=== PATIENT | male | born 1965 | race American Indian/Alaskan Native ===

== ENCOUNTER 2021-05-16 19:14 | Emergency (ER) | payer SELFPAY ==
--- NOTE | 2021-05-16 19:36 | Event Note ---
ED Screening Note ED Screening Note: Patient is a 56-year-old male who presents emergency room with complaints of a possible foreign body in the throat He states he has discomfort in his throat and feels like something is in his throat He states that this occurred after eating Father's Day dinner He states he is not sure if it is a sausage casing He denies any eating anything with bones in it He states he has been spitting out his secretions due to discomfort He denies any vomiting or regurgitation of food he denies any Hemoptysis or hematemesis This initial assessment/diagnostic orders/clinical plan/treatment(s) is/are subject to change based on patients health status, clinical progression and re- assessment by fellow clinical providers in the ED. Further treatment and workup at subsequent clinical providers discretion. Patient/guardian urged not to elope from the ED as their condition may be serious if not clinically assessed and managed. Initial orders include: ct neck without contrast
--- NOTE | 2021-05-16 20:47 | Cat Scan Report ---
CT NECK WITHOUT CONTRAST HISTORY: Possible foreign body in the throat COMPARISON: None. TECHNIQUE: Routine CT of the neck is performed following intravenous contrast. All CT scans at [facility] are performed using CT dose reduction for ALARA by means of automated exposure control CONTRAST: None FINDINGS: Oral cavity, oropharynx, hypopharynx, cervical esophagus and upper thoracic esophagus: No radiopaque foreign body Skull Base: No significant abnormality. Parotid, Carotid, Retropharyngeal, Prevertebral, Pharyngeal Mucosal, and Human Services Case Manager Spaces: No abnorm al mass, enhancing lesion or other significant abnormality. Airway: Patent and without significant abnormality. Lymphatics: No lymphadenopathy. Vasculature: Difficulty evaluate without intravenous contrast Osseous Structures: Spondylotic changes at multiple levels resulting in foraminal stenoses Additional findings: None. IMPRESSION: No radiopaque foreign body in the pharynx Signer Name: Caleb Cervantes MD Signed: 05/16/2021 8:42 PM Workstation Name: [id number]
[2021-05-17] MEDS ORDERED: GLUCAGON (HUMAN RECOMBINANT) 1 MG/ML INJ IV ONE ×2 (00:58→03:00)
--- NOTE | 2021-05-17 01:09 | Emergency Department Report ---
HPI <RAYNE DELONG - Last Filed: 05/17/21 07:24> - HPI HPI: This is a 56-year-old -[place]ish male presents to the emergency department with a complaint of a food bolus impaction that occurred this evening for dinner. The patient thinks that it is a sausage casing. He feels like he was able to vomit or retch up most of the food but thinks that the casing is still stuck in there. He says that whenever he tries to drink any water or any liquids that it does not pass and he vomits it up. He tried drinking some edgard jeffrey. Patient says that he had this issue 1 time in the past, about 6 years ago, and required some type of surgical intervention at that time. <TODD CASTILLO S - Last Filed: 05/19/21 06:06> - General Chief Complaint: Skin/Abscess/Foreign Body Time Seen by Provider: 05/16/21 19:24 ED Past Medical Hx - Past Medical History Previous Medical History?: No - Surgical History Past Surgical History?: No - Social History Smoking Status: Never Smoker Substance Use Type: None <TODD CASTILLO S - Last Filed: 05/19/21 06:06> ED Review of Systems ROS: Stated complaint: FOOD LOGDGE IN THROAT Other details as noted in HPI <SINDIRAYNE - Last Filed: 05/17/21 07:24> ROS: Stated complaint: FOOD LOGDGE IN THROAT Other details as noted in HPI Comment: All other systems reviewed and negative Constitutional: denies: chills, fever Eyes: denies: eye pain, vision change ENT: throat pain. denies: ear pain Respiratory: denies: cough, shortness of breath Cardiovascular: denies: chest pain, palpitations Gastrointestinal: denies: abdominal pain, vomiting Genitourinary: denies: dysuria, discharge Musculoskeletal: denies: back pain, arthralgia Skin: denies: rash, lesions Neurological: denies: headache, weakness <TODD CASTILLO S - Last Filed: 05/19/21 06:06> Physical Exam - Physical Exam Vital Signs: Vital Signs 05/16/21 05/17/21 05/17/21 19:26 01:15 01:31 Temperature 98.2 F 98.5 F Pulse Rate 91 H 77 74 Respiratory 91 H 19 16 Rate Blood Pressure 169/112 181/114 181/114 O2 Sat by Pulse 97 98 98 Oximetry 05/17/21 05/17/21 05/17/21 01:45 02:01 02:15 Temperature Pulse Rate 59 L 57 L 59 L Respiratory 17 16 15 Rate Blood Pressure 155/91 148/91 160/90 O2 Sat by Pulse 97 98 98 Oximetry 05/17/21 05/17/21 05/17/21 02:31 02:37 02:45 Temperature Pulse Rate 70 80 79 Respiratory 17 19 Rate Blood Pressure 182/106 182/106 192/114 O2 Sat by Pulse 97 100 Oximetry 05/17/21 05/17/21 05/17/21 03:01 03:15 03:31 Temperature Pulse Rate 101 H 101 H 79 Respiratory 18 21 17 Rate Blood Pressure 173/102 173/102 171/105 O2 Sat by Pulse 99 98 99 Oximetry 05/17/21 05/17/21 05/17/21 03:45 03:59 04:01 Temperature Pulse Rate 66 93 H Respiratory 16 18 20 Rate Blood Pressure 145/83 139/80 O2 Sat by Pulse 99 99 Oximetry 05/17/21 05/17/21 05/17/21 04:15 04:29 04:31 Temperature Pulse Rate 78 64 Respiratory 16 18 17 Rate Blood Pressure 143/79 128/81 O2 Sat by Pulse 99 98 Oximetry 05/17/21 05/17/21 05/17/21 04:45 05:01 05:15 Temperature Pulse Rate 77 69 82 Respiratory 15 13 13 Rate Blood Pressure 134/73 138/91 132/77 O2 Sat by Pulse 98 99 99 Oximetry 05/17/21 05/17/21 05/17/21 05:31 05:45 06:01 Temperature Pulse Rate 69 72 67 Respiratory 16 13 13 Rate Blood Pressure 155/91 140/92 143/92 O2 Sat by Pulse 99 99 99 Oximetry 05/17/21 05/17/21 05/17/21 06:15 06:45 07:00 Temperature Pulse Rate 87 73 92 H Respiratory 15 13 11 L Rate Blood Pressure 143/95 143/92 148/105 O2 Sat by Pulse 98 98 98 Oximetry 05/17/21 07:15 Temperature Pulse Rate 88 Respiratory 11 L Rate Blood Pressure 156/112 O2 Sat by Pulse 98 Oximetry <RAYNE DELONG - Last Filed: 05/17/21 07:24> - Physical Exam Vital Signs: Vital Signs 05/16/21 19:26 Temperature 98.2 F Pulse Rate 91 H Respiratory 91 H Rate Blood Pressure 169/112 O2 Sat by Pulse 97 Oximetry Physical Exam: GENERAL: The patient is well-developed well-nourished. HENT: Normocephalic. Atraumatic. Patient has moist mucous membranes. EYES: Extraocular motions are intact. NECK: Supple. Trachea is midline. CHEST/LUNGS: Clear to auscultation. There is no respiratory distress noted. HEART/CARDIOVASCULAR: Regular. There is no tachycardia. There is no murmur. ABDOMEN: Abdomen is soft, nontender. Patient has normal bowel sounds. There is no abdominal distention. SKIN: Skin is warm and dry. NEURO: The patient is awake, alert, and oriented. The patient is cooperative. The patient has no focal neurologic deficits. Normal speech. MUSCULOSKELETAL: There is no tenderness or deformity. There is no limitation range of motion. <TODD CASTILLO S - Last Filed: 05/19/21 06:06> ED Course Vital Signs 05/16/21 05/17/21 05/17/21 19:26 01:15 01:31 Temperature 98.2 F 98.5 F Pulse Rate 91 H 77 74 Respiratory 91 H 19 16 Rate Blood Pressure 169/112 181/114 181/114 O2 Sat by Pulse 97 98 98 Oximetry 05/17/21 05/17/21 05/17/21 01:45 02:01 02:15 Temperature Pulse Rate 59 L 57 L 59 L Respiratory 17 16 15 Rate Blood Pressure 155/91 148/91 160/90 O2 Sat by Pulse 97 98 98 Oximetry 05/17/21 05/17/21 05/17/21 02:31 02:37 02:45 Temperature Pulse Rate 70 80 79 Respiratory 17 19 Rate Blood Pressure 182/106 182/106 192/114 O2 Sat by Pulse 97 100 Oximetry 05/17/21 05/17/21 05/17/21 03:01 03:15 03:31 Temperature Pulse Rate 101 H 101 H 79 Respiratory 18 21 17 Rate Blood Pressure 173/102 173/102 171/105 O2 Sat by Pulse 99 98 99 Oximetry 05/17/21 05/17/21 05/17/21 03:45 03:59 04:01 Temperature Pulse Rate 66 93 H Respiratory 16 18 20 Rate Blood Pressure 145/83 139/80 O2 Sat by Pulse 99 99 Oximetry 05/17/21 05/17/21 05/17/21 04:15 04:29 04:31 Temperature Pulse Rate 78 64 Respiratory 16 18 17 Rate Blood Pressure 143/79 128/81 O2 Sat by Pulse 99 98 Oximetry 05/17/21 05/17/21 05/17/21 04:45 05:01 05:15 Temperature Pulse Rate 77 69 82 Respiratory 15 13 13 Rate Blood Pressure 134/73 138/91 132/77 O2 Sat by Pulse 98 99 99 Oximetry 05/17/21 05/17/21 05/17/21 05:31 05:45 06:01 Temperature Pulse Rate 69 72 67 Respiratory 16 13 13 Rate Blood Pressure 155/91 140/92 143/92 O2 Sat by Pulse 99 99 99 Oximetry 05/17/21 05/17/21 05/17/21 06:15 06:45 07:00 Temperature Pulse Rate 87 73 92 H Respiratory 15 13 11 L Rate Blood Pressure 143/95 143/92 148/105 O2 Sat by Pulse 98 98 98 Oximetry 05/17/21 07:15 Temperature Pulse Rate 88 Respiratory 11 L Rate Blood Pressure 156/112 O2 Sat by Pulse 98 Oximetry - Reevaluation(s) Reevaluation #2: 05/17/21 07:24 Patient weighs me into the room. He informed me that he was able to regurgitate the food bolus. He has had endoscopy performed for similar presentation in the past. He informed me that pork sausage was impacted in his esophagus. He was able to swallow 8 ounces of water without difficulty. I have contacted GI specialist Dr. Mnotanez in order to cancel scheduled endoscopy. Patient is discharged home. <RAYNE DELONG - Last Filed: 05/17/21 07:24> Vital Signs 05/16/21 19:26 Temperature 98.2 F Pulse Rate 91 H Respiratory 91 H Rate Blood Pressure 169/112 O2 Sat by Pulse 97 Oximetry - Reevaluation(s) Reevaluation #1: 05/17/21 04:16 When the patient came back to the emergency department for my initial examination, he had already had a CT scan of the neck that did not show any evidence of radiopaque foreign body or radiopaque food bolus. However, I tested the patient with water and 2 different times the water did not appear to pass and immediately came back up and caused him to have vomiting/retching. We then tried using soda and having him hop up and down on his heels, but this did not appear to dislodge the food bolus and once again the soda came back up. The patient was given a dose of glucagon and after 30 to 45 minutes the patient still is unable to pass liquids down the esophagus. GI was contacted and consulted and they will come in in the morning for evaluation and possible endoscopy. - Consultations Consultation #1: 05/17/21 03:00 I spoke to the business english instructor on-call, Dr Montanez, regarding this patient's impacted food bolus. Since it is currently 3 in the morning going into a Monday, we will keep the patient in the emergency department and a GI consult has been placed. GI will see the patient in the emergency department and most likely scope him to look for and remove the impacted food bolus. He will most likely be discharged after the procedure assuming that the endoscopy does not show any significant complications. <TODD CASTILLO - Last Filed: 05/19/21 06:06> ED Medical Decision Making - Radiology Data Radiology results: report reviewed CT NECK WITHOUT CONTRAST HISTORY: Possible foreign body in the throat COMPARISON: None. TECHNIQUE: Routine CT of the neck is performed following intravenous contrast. All CT scans at this location are performed using CT dose reduction for ALARA by means of automated exposure control CONTRAST: None FINDINGS: Oral cavity, oropharynx, hypopharynx, cervical esophagus and upper thoracic esophagus: No radiopaque foreign body Skull Base: No significant abnormality. Parotid, Carotid, Retropharyngeal, Prevertebral, Pharyngeal Muco narda, and Gill Box Fixer Spaces: No abnormal mass, enhancing lesion or other significant abnormality. Airway: Patent and without significant abnormality. Lymphatics: No lymphadenopathy. Vasculature: Difficulty evaluate without intravenous contrast Osseous Structures: Spondylotic changes at multiple levels resulting in foraminal stenoses Additional findings: None. IMPRESSION: No radiopaque foreign body in the pharynx - Medical Decision Making Despite the negative CT scan, the patient appears to have an impacted food bolus. He is unable to pass any liquids down the esophagus and into the stomach. I attempted giving him soda and having him jump up and down on his heels, followed by a failed attempt to improve his condition with glucagon. GI has been contacted and consulted. 05/19/21 6A: In reviewing the rest of this patient's ED course, it appears that the patient had a GI consult that morning, but he had a vomiting episode just prior to the consult in which the impacted food bolus finally came out. Therefore, he did not require endoscopy. He will follow-up outpatient for possible esophageal dilatation. <TODD CASTILLO S - Last Filed: 05/19/21 06:06> Critical care attestation.: If time is entered above; I have spent that time in minutes in the direct care of this critically ill patient, excluding procedure time. <RAYNE DELONG - Last Filed: 05/17/21 07:24> Critical Care Time: No Critical care attestation.: If time is entered above; I have spent that time in minutes in the direct care of this critically ill patient, excluding procedure time. <TODD CASTILLO - Last Filed: 05/19/21 06:06> ED Disposition Is pt being admited?: No Does the pt Need Aspirin: No <RAYNE DELONG - Last Filed: 05/17/21 07:24> Is pt being admited?: No Time of Disposition: 04:20 <TODD CASTILLO S - Last Filed: 05/19/21 06:06> Clinical Impression: Food impaction of esophagus Qualifiers: Encounter type: initial encounter Qualified Code(s): T18.128A - Food in esophagus causing other injury, initial encounter Hypertension Qualifiers: Hypertension type: essential hypertension Qualified Code(s): I10 - Essential (primary) hypertension Disposition: - TO HOME OR SELFCARE Condition: Stable Instructions: Hypertension, Adult, Hypertension (ED) Additional Instructions: Please follow-up with your primary care physician in the next few days. I have given you a referral for Dr. Montanez, one of the business english instructor with [facility], to follow-up regarding your esophageal stenosis and the impacted food bolus. Please try and stay away from foods that are high in salt and caffeinated products. Keep a blood pressure log. Return to the emergency department with any worsening of your symptoms, new or concerning symptoms not addressed during this current emergency department visit, or with any acute distress. Referrals: PRIMARY CARE, [Primary Care Provider] - 3-5 Days NNAMDI MONTANEZ MD [Staff Physician] - 3-5 Days [facility] [Provider Group] - 3-5 Days
[2021-05-17] MEDS ORDERED: hydrALAZINE 20 MG/1 ML INJ IV ONE (02:31)
[2021-05-17] MEDS ORDERED: MORPHINE 4 MG/1 ML INJ IV ONE (03:25)
[2021-05-17 07:44] VITALS: BP 157/110
--- NOTE | 2021-05-17 07:54 | Gastroenterology Consultation ---
History of Present Illness - Reason for Consult Consult date: 05/17/21 Food bolus Requesting physician: TODD CASTILLO - History of Present Illness This is a 56 yo male presented overnight to the ED for food impaction after eating pork sausage yesterday around 5 PM. Since then, he could not swallow anything even water. Denies any abdominal pain. He received IV pain medication. Just prior to GI evaluation, he states he had vomited and the sausage came out. Now he is able to drink water without any vomiting or choking. He had similar episode about 6 years ago and had EGD with food bolus extraction at [place]. He was told to follow up for dilation but never did. He has been having occasional dysphagia to solids since then. medication list reviewed. Past History Past Medical History: hypertension Past Surgical History: Other (EGD) Social history: lives with family Family history: no significant family history Medications and Allergies Allergies Allergy/AdvReac Type Severity Reaction Status Date / Time No Known Allergies Allergy Verified 05/17/21 01:16 Review of Systems - Review of Systems All systems: negative Constitutional: no weight loss, no weight gain Cardiovascular: no chest pain Respiratory: no cough, no shortness of breath Gastrointestinal: nausea, vomiting, no abdominal pain, no diarrhea, no constipation, no hematemesis, no coffee ground emesis Neurological: no head injury, no weakness Exam - Constitutional Vital Signs: Temp Pulse Resp BP Pulse Ox 98.5 F 81 15 157/110 97 05/17/21 01:15 05/17/21 07:31 05/17/21 07:31 05/17/21 07:31 05/17/21 07:31 General appearance: no acute distress - EENT Eyes: EOM intact ENT: hearing intact - Neck Neck: supple - Respiratory Respiratory effort: normal - Cardiovascular Rhythm: regular Heart Sounds: Present: S1 & S2 - Gastrointestinal General gastrointestinal: Present: soft, non-tender, non-distended - Neurologic Neurological: alert and oriented x3 - Imaging CT Scan: report reviewed Assessment and Plan - Patient Problems (1) Food impaction of esophagus Current Visit: Yes Status: Acute Plan to address problem: # Food bolus - insult around 5 PM with sausage. Vomiting episode just prior to GI evaluation and food came out. Not tolerating PO intake. - no need for emergent EGD. - advised to follow up with GI outpatient for outpatient EGD with possible esophageal dilation. - advised on soft diet. - recommend ED precautions
== END 2021-05-17 07:49 | disposition home or self-care (01) ==
LOC: ED 19:14
DX: T18.128A Food in esophagus causing other injury, initial encounter (principal); I10 Essential (primary) hypertension; Z79.899 Other long term (current) drug therapy; X58.XXXA Exposure to other specified factors, initial encounter; Y93.89 Activity, other specified; Y92.89 Other specified places as the place of occurrence of the external cause; Y99.8 Other external cause status
CPT/HCPCS: 70490; 96374; 96375; 99283; J0360; J1610; J2270